=== PATIENT | female | born 1980 | race American Indian/Alaskan Native ===

== ENCOUNTER 2019-06-30 22:10 | Emergency (ER) | payer SELFPAY ==
[2019-06-30 22:20] VITALS: BP 98/62
[2019-06-30 23:49] LABS: Bilirubin,Urine NEG (Negative); Blood,Urine NEG (Negative); Color,Urine Straw (Yellow); Protein,Urine <15 mg/dL mg/dL (Negative); Urobilinogen,Urine < 2.0 mg/dL (<2.0)
[2019-07-01] MEDS ORDERED: TYLENOL PO ONE (01:01)
--- NOTE | 2019-07-01 01:01 | Emergency Department Report ---
ED Abdominal Pain HPI - General Chief Complaint: Abdominal Pain Stated Complaint: BILATERAL FLANK PAIN/ 18 WK GESTATION Time Seen by Provider: 07/01/19 00:06 Source: patient, EMS Mode of arrival: Ambulatory Limitations: No Limitations - History of Present Illness Initial Comments: 39-year-old -[place] female comes to the emergency room complaining of bilateral flank pain 4 days. Patient reports she is approximately 18 weeks with a last menstrual period of 03/16/2019 she is 13 para 75 abortions. Patient currently has no OB care as she recently moved from [place] 8 months ago. Patient does admit to vaginal discharge. Denies any fever or chills, nausea vomiting. MD Complaint: flank pain Onset/Timin -: days(s) Location: bilateral flank Radiation: none Severity scale (0 -10): 9 Quality: aching, sharp Consistency: constant Improves With: nothing Worsens With: movement Associated Symptoms: dysuria - Related Data LMP Date: 03/16/19 Previous Rx's Medication Instructions Recorded Last Taken Type Nitrofurantoin Juab/M-Cryst 100 mg PO Q12HR #14 capsule 07/01/19 Unknown Rx [Macrobid CAP] metroNIDAZOLE [Flagyl] 500 mg PO Q8HR #21 tablet 07/01/19 Unknown Rx Allergies Allergy/AdvReac Type Severity Reaction Status Date / Time codeine Allergy Shortness Verified 07/01/19 01:07 of Breath doxycycline Allergy Swelling Verified 07/01/19 01:07 tetracycline Allergy Itching Verified 06/30/19 22:16 ED Review of Systems ROS: Stated complaint: BILATERAL FLANK PAIN/ 18 WK GESTATION Other details as noted in HPI Comment: All other systems reviewed and negative Genitourinary: urgency, dysuria, frequency Musculoskeletal: back pain ED Past Medical Hx - Past Medical History Previous Medical History?: Yes Hx Renal Disease: Yes (stage 1) - Surgical History Past Surgical History?: Yes Additional Surgical History: D&C - Social History Smoking Status: Never Smoker - Medications Home Medications: Home Medications Medication Instructions Recorded Confirmed Last Taken Type Nitrofurantoin Juab/M-Cryst 100 mg PO Q12HR #14 capsule 07/01/19 Unknown Rx [Macrobid CAP] metroNIDAZOLE [Flagyl] 500 mg PO Q8HR #21 tablet 07/01/19 Unknown Rx ED Physical Exam - General Limitations: No Limitations General appearance: alert, in no apparent distress - Head Head exam: Present: atraumatic, normocephalic - Eye Eye exam: Present: normal appearance - ENT ENT exam: Present: mucous membranes moist - Neck Neck exam: Present: normal inspection - Respiratory Respiratory exam: Present: normal lung sounds bilaterally. Absent: respiratory distress - Cardiovascular Cardiovascular Exam: Present: regular rate, normal rhythm. Absent: systolic murmur, diastolic murmur, rubs, gallop - GI/Abdominal GI/Abdominal exam: Present: soft, normal bowel sounds - External exam: Present: normal external exam Speculum exam: Present: vaginal discharge Bi-manual exam: Present: cervical motion tendernes - Extremities Exam Extremities exam: Present: normal inspection - Back Exam Back exam: Present: normal inspection - Neurological Exam Neurological exam: Present: alert, oriented X3 - Psychiatric Psychiatric exam: Present: normal affect, normal mood - Skin Skin exam: Present: warm, dry, intact, normal color. Absent: rash ED Course Vital Signs 06/30/19 22:19 Temperature 98.4 F Pulse Rate 86 Respiratory 18 Rate Blood Pressure 98/62 O2 Sat by Pulse 100 Oximetry ED Medical Decision Making - Lab Data Laboratory Tests 06/30/19 06/30/19 22:20 22:55 HCG, Quant [id number] H Urine Color Straw Urine Turbidity Clear Urine pH 6.0 Ur Specific [place] 1.013 Urine Protein <15 mg/dl Urine Glucose (UA) Neg Urine Ketones Neg Urine Blood Neg Urine Nitrite Neg Urine Bilirubin Neg Urine Urobilinogen < 2.0 Ur Leukocyte Esterase Lg Urine WBC (Auto) 37.0 H Urine RBC (Auto) 3.0 U Epithel Cells (Auto) 1.0 Urine Yeast (Budding) 1+ - Radiology Data Radiology results: report reviewed Patient: EVERARDO CORTES MR#: [id number] : 1980 Acct:[id number] Age/Sex: 39 / F ADM Date: 06/30/19 Loc: ED Attending Dr: Ordering Physician: TIBURCIO TOWNSEND Date of Service: 07/01/19 Procedure(s): US OB <= 14 weeks fetus Accession Number(s): [id number] cc: TIBURCIO TOWNSEND ULTRASOUND OBSTETRIC INDICATION / CLINICAL INFORMATION: pelvic pain. TECHNIQUE: Transabdominal. COMPARISON: None available. FINDINGS: GESTATIONAL SAC: Well-defined oval shape and intrauterine in location. YOLK SAC: No significant abnormality. EMBRYO/FETUS: No significant abnormality. - [place]-Rump Length = 6.5 cm = 12 weeks, 6 day(s). - Heart Rate, beats per minute (if present) = 162 ADNEXA: No significant abnormality. FREE FLUID: None. ADDITIONAL FINDINGS: None. IMPRESSION: 1. Single, living intrauterine with estimated sonographic age of 12 weeks, 6 day(s). Signer Name: Niles Gaitan MD Signed: 07/01/2019 1:03 AM Workstation Name: [id number] Transcribed By: TL Dictated By: Niles Gaitan MD Electronically Authenticated By: Niles Gaitan MD Signed Date/Time: 07/01/19102 DD/ 1 TD/TT: - Medical Decision Making 39-year-old -[place] female comes to the emergency room complaining of bilateral flank pain 4 days. Patient reports she is approximately 18 weeks with a last menstrual period of 03/16/2019 she is 13 para 75 abortions. Patient currently has no OB care as she recently moved from [place] 8 months ago. Patient does admit to vaginal discharge. Denies any fever or chills, nausea vomiting.. Ultrasound ordered, wet prep, Chlamydia, urinalysis, hCG Wet prep shows many yeasts and greater than 20% clue cells, urinalysis shows large leukoesterase and 30s 7 WBCs. Ultrasound shows patient is 12 weeks 6 days . We will treat patient for bacterial vaginosis a urinary tract infection. Please patient on vitamins and for her to be referred to [facility]. Discussed with patient she can take Tylenol for pain Critical care attestation.: If time is entered above; I have spent that time in minutes in the direct care of this critically ill patient, excluding procedure time. ED Disposition Clinical Impression: Bacterial vaginosis in UTI (urinary tract infection) during Qualifiers: Trimester: third trimester Qualified Code(s): O23.43 - Unspecified infection of urinary tract in , third trimester Disposition: DC-01 TO HOME OR SELFCARE Is pt being admited?: No Does the pt Need Aspirin: No Condition: Stable Instructions: Abdominal Pain (ED), Bacterial Vaginosis (ED) Additional Instructions: Complete antibiotics as prescribed. You can take Tylenol as needed for pain management. Increase her water intake but then she as tolerated. Please start taking vitamins he can try vitamins as they may be better for you. Very important for you to follow up with OB provider. I have listed several below for your convenience Prescriptions: metroNIDAZOLE [Flagyl] 500 mg PO Q8HR #21 tablet Nitrofurantoin Juab/M-Cryst [Macrobid CAP] 100 mg PO Q12HR #14 capsule Referrals: PRIMARY CARE, [Primary Care Provider] - 3-5 Days [facility] [Provider Group] - 3-5 Days [facility] [Provider Group] - 3-5 Days [facility] [Provider Group] - 3-5 Days Forms: STI Treatment and Prevention
--- NOTE | 2019-07-01 01:08 | Ultrasound Report ---
ULTRASOUND OBSTETRIC INDICATION / CLINICAL INFORMATION: pelvic pain. TECHNIQUE: Transabdominal. COMPARISON: None available. FINDINGS: GESTATIONAL SAC: Well-defined oval shape and intrauterine in location. YOLK SAC: No significant abnormality. EMBRYO/FETUS: No significant abnormality. - [place]-Rump Length = 6.5 cm = 12 weeks, 6 day(s). - Heart Rate, beats per minute (if present) = 162 ADNEXA: No significant abnormality. FREE FLUID: None. ADDITIONAL FINDINGS: None. IMPRESSION: 1. Single, living intrauterine with estimated sonographic age of 12 weeks, 6 day(s). Signer Name: Niles Gaitan MD Signed: 07/01/2019 1:03 AM Workstation Name: [id number]
== END 2019-07-01 01:55 | disposition home or self-care (01) ==
LOC: ED 22:10
DX: O23.43 Unspecified infection of urinary tract in pregnancy, third trimester (principal); N76.0 Acute vaginitis
CPT/HCPCS: 36415; 76801; 81001; 84702; 87086; 87210; 87591

== ENCOUNTER 2020-03-07 13:08 | Emergency (ER) | payer OTHER ==
--- NOTE | 2020-03-07 13:45 | Emergency Department Report ---
ED Abdominal Pain HPI - General Chief Complaint: Abdominal Pain Stated Complaint: UTI PUI?: No Time Seen by Provider: 03/07/20 13:43 Source: patient Mode of arrival: Ambulatory Limitations: No Limitations - History of Present Illness Initial Comments: Ms. Hunter is a 39-year-old comes to the emergency room with severe right fl ank pain and dysuria for 3 days. She denies nausea and vomiting. She does endorse a fever. She has no cough chest pain or shortness of breath. She has not seen her primary care doctor. She has not taken any medications prior to arrival. In triage heart rate was 116 bpm and temperature was 99.5. Patient was ambulatory to [facility]. MD Complaint: abdominal pain -: Gradual, days(s) Consistency: constant Improves With: nothing Worsens With: nothing Associated Symptoms: denies other symptoms, nausea, vomiting, dysuria. denies: diarrhea, fever, chills, constipation, hematemesis, hematochezia, melena, hematuria, anorexia, syncope - Related Data Previous Rx's Medication Instructions Recorded Last Taken Type Ibuprofen [Motrin] 800 mg PO Q8HR PRN #30 tablet 03/07/20 Unknown Rx Ondansetron [Zofran Odt] 4 mg PO Q8HR PRN #10 tab.rapdis 03/07/20 Unknown Rx Sulfamethoxazole/Trimethoprim 1 each PO BID #10 tablet 03/07/20 Unknown Rx [Bactrim DS TAB] Tamsulosin [Flomax] 0.4 mg PO QDAY #10 cap 03/07/20 Unknown Rx traMADoL [Ultram] 50 mg PO Q6HR PRN #10 tablet 03/07/20 Unknown Rx Allergies Allergy/AdvReac Type Severity Reaction Status Date / Time codeine Allergy Shortness Verified 01/11/20 17:12 of Breath doxycycline Allergy Swelling Verified 01/11/20 17:12 ketorolac [From Toradol] Allergy Rash Verified 01/11/20 17:12 metoclopramide [From Reglan] Allergy Rash Verified 01/11/20 17:12 tetracycline Allergy Itching Verified 01/11/20 17:12 ED Review of Systems ROS: Stated complaint: UTI Other details as noted in HPI Comment: All other systems reviewed and negative ED Past Medical Hx - Past Medical History Previous Medical History?: Yes Hx Hypertension: No Hx Congestive Heart Failure: No Hx Diabetes: No Hx Deep Vein Thrombosis: No Hx Renal Disease: No Hx Sickle Cell Disease: No Hx Seizures: No Hx Asthma: Yes Hx COPD: No - Surgical History Past Surgical History?: Yes Additional Surgical History: D&C - Social History Smoking Status: Current Every Day Smoker Substance Use Type: None - Medications Home Medications: Home Medications Medication Instructions Recorded Confirmed Last Taken Type Ibuprofen [Motrin] 800 mg PO Q8HR PRN #30 tablet 03/07/20 Unknown Rx Ondansetron [Zofran Odt] 4 mg PO Q8HR PRN #10 tab.rapdis 03/07/20 Unknown Rx Sulfamethoxazole/Trimethoprim 1 each PO BID #10 tablet 03/07/20 Unknown Rx [Bactrim DS TAB] Tamsulosin [Flomax] 0.4 mg PO QDAY #10 cap 03/07/20 Unknown Rx traMADoL [Ultram] 50 mg PO Q6HR PRN #10 tablet 03/07/20 Unknown Rx ED Physical Exam - General Limitations: No Limitations General appearance: alert, in no apparent distress - Head Head exam: Present: atraumatic, normocephalic - Eye Eye exam: Present: normal appearance - ENT ENT exam: Present: mucous membranes moist - Neck Neck exam: Present: normal inspection - Respiratory Respiratory exam: Present: normal lung sounds bilaterally. Absent: respiratory distress - Cardiovascular Cardiovascular Exam: Present: regular rate, normal rhythm. Absent: systolic murmur, diastolic murmur, rubs, gallop - GI/Abdominal GI/Abdominal exam: Present: soft, normal bowel sounds - Extremities Exam Extremities exam: Present: normal inspection - Back Exam Back exam: Present: normal inspection - Neurological Exam Neurological exam: Present: alert, oriented X3 - Psychiatric Psychiatric exam: Present: normal affect, normal mood - Skin Skin exam: Present: warm, dry, intact, normal color. Absent: rash ED Course Vital Signs 03/07/20 03/07/20 13:14 15:00 Temperature 99.5 F Pulse Rate 116 H Respiratory 18 16 Rate Blood Pressure 107/66 O2 Sat by Pulse 99 Oximetry ED Medical Decision Making - Lab Data Result diagrams: 03/07/20 13:34 03/07/20 13:34 - Radiology Data Radiology results: report reviewed, image reviewed - Medical Decision Making Lab Results 03/07/20 03/07/20 Range/Units 13:32 13:34 Sodium 131 L (137-145) mmol/L Potassium 4.2 (3.6-5.0) mmol/L Chloride 96.8 L (98-107) mmol/L Carbon Dioxide 17 L (22-30) mmol/L Anion Gap 21 mmol/L BUN 5 L (7-17) mg/dL Creatinine 0.7 (0.7-1.2) mg/dL Estimated GFR > 60 ml/min BUN/Creatinine Ratio 7 % Glucose 94 (65-100) mg/dL Calcium 9.2 (8.4-10.2) mg/dL Urine Color Yellow (Yellow) Urine Turbidity Cloudy (Clear) Urine pH 6.0 (5.0-7.0) Ur Specific [place] 1.011 (1.003-1.030) Urine Protein 30 mg/dl (Negative) mg/dL Urine Glucose (UA) Neg (Negative) mg/dL Urine Ketones Neg (Negative) mg/dL Urine Blood Sm (Negative) Urine Nitrite Neg (Negative) Urine Bilirubin Neg (Negative) Urine Urobilinogen 2.0 (<2.0) mg/dL Ur Leukocyte Esterase Lg (Negative) Urine WBC (Auto) > 182.0 H (0.0-6.0) /HPF Urine RBC (Auto) 23.0 (0.0-6.0) /HPF U Epithel Cells (Auto) 6.0 (0-13.0) /HPF Urine HCG, Qual Negative (Negative) Vital Signs 03/07/20 13:14 Temperature 99.5 F Pulse Rate 116 H Respiratory 18 Rate Blood Pressure 107/66 O2 Sat by Pulse 99 Oximetry labs noted ua noted ct noted Patient medicated with normal saline, pain medication and Zofran. Patient given Rocephin. Patient has been educated that she has a kidney stone and will need to see urology. Patient has a 2 mm stone which she should be able to pass. She has mild hydro-. WBC is 14. Patient will be discharged home on antibiotics, Flomax and Zofran. She verbalizes understanding that she needs to see urology as soon as possible. On discharge patient is ambulatory nontoxic taking p.o. and in no acute distress - Differential Diagnosis uti/ro preg/k stone Critical care attestation.: If time is entered above; I have spent that time in minutes in the direct care of this critically ill patient, excluding procedure time. ED Disposition Clinical Impression: UTI (urinary tract infection), Kidney stone Disposition: DC-01 TO HOME OR SELFCARE Is pt being admited?: No Does the pt Need Aspirin: No Condition: Stable Instructions: Kidney Stones (ED) Additional Instructions: stay well hydrated with water motrin or tylenol for mild pain ultram for severe pain meds as ordered today follow up with URO MD denita referral below follow up with pcp referral below Prescriptions: Sulfamethoxazole/Trimethoprim [Bactrim DS TAB] 1 each PO BID #10 tablet Tamsulosin [Flomax] 0.4 mg PO QDAY #10 cap Ibuprofen [Motrin] 800 mg PO Q8HR PRN #30 tablet PRN Reason: Pain, Moderate (4-6) traMADoL [Ultram] 50 mg PO Q6HR PRN #10 tablet PRN Reason: Pain Ondansetron [Zofran Odt] 4 mg PO Q8HR PRN #10 tab.rapdis PRN Reason: Vomiting Referrals: NELLIE RUSSO MD [Staff Physician] - 3-5 Days TRACIE SHOEMAKER MD [Staff Physician] - 3-5 Days Time of Disposition: 14:54
[2020-03-07 14:22] LABS: Bilirubin,Urine NEG (Negative); Blood,Urine SM (Negative); Color,Urine Yellow (Yellow)
[2020-03-07 14:25] LABS: WBC,Urine > 182.0 /HPF (0.0-6.0)
[2020-03-07] MEDS ORDERED: SODIUM CHLORIDE 0.9% 1000 ML 1,000 ML IV ONE ×2 (14:25→15:20)
[2020-03-07] MEDS ORDERED: cefTRIAXone/NS 1 GM/50 ML 1 GM/50 ML BAG IV ONE (14:25)
[2020-03-07 14:26] LABS: HCG Qualitative,Urine Negative (Negative)
[2020-03-07] MEDS ORDERED: HYDROcodone/ACETAMINOPHEN 5-325 MG TAB PO ONE (14:41)
[2020-03-07 14:48] LABS: BUN/Creatinine Ratio 7; Blood Urea Nitrogen 5 mg/dL (7-17); Calcium 9.2 mg/dL (8.4-10.2); Hemolysis Index 67
[2020-03-07 14:49] LABS: Hematocrit 32.8 % (30.3-42.9); Hemoglobin 10.4 gm/dl (10.1-14.3); Mean Corpuscular HGB Conc 32 % (30-34); Mean Corpuscular Volume 79 fl (79-97); Platelet Count 176 K/mm3 (140-440); Red Blood Count 4.13 M/mm3 (3.65-5.03)
[2020-03-07 14:54] LABS: Red Cell Distribution Width 20.8 % (13.2-15.2)
--- NOTE | 2020-03-07 15:14 | Cat Scan Report ---
CT ABDOMEN AND PELVIS WITHOUT CONTRAST HISTORY: Abdominal pain and weakness COMPARISON: None TECHNIQUE: Routine abdominal and pelvic CT exam performed without contrast. Lack of intravenous cont rast limits evaluation of the vascular and solid organs.. All CT scans at this location are performed using CT dose reduction for ALARA by means of automated exposure control. FINDINGS: CT ABDOMEN: Lung Bases: No significant abnormality. Liver: No significant abnormality. Biliary: No significant abnormality. Spleen: No significant abnormality. Unenlarged. Pancreas: No significant abnormality. Adrenals: No significant abnormality. Kidneys: There is mild right hydronephrosis due to a 2 mm stone in the mid right ureter at the level of the pelvic brim. Lymphatics: No lymphadenopathy. Vasculature: No significant abnormality. Bowel/Peritoneum: No significant abnormality. No free air. No free fluid. Normal appendix. CT PELVIC: : No significant abnormality. Lymphatics: No lymphadenopathy. Osseous Structures: No aggressive appearing osseous lesions. Additional Findings: None IMPRESSION: 1. Mild right hydronephrosis due to a 2 mm stone in the mid right ureter at the level of the pelvic b rim. Signer Name: Anshu Leal MD Signed: 03/07/2020 3:10 PM Workstation Name: [id number]
[2020-03-07] MEDS ORDERED: ONDANSETRON 4 MG/2 ML INJ IV ONE (15:16)
[2020-03-07 15:46] LABS: Anisocytosis 1+; Basophils % (Manual) 0 % (0.0-1.8); Burr Cells 1+; Hypochromasia 1+; Ovalocytes 1+; Total Cells Counted 100
[2020-03-07] MEDS ORDERED: HYDROmorphone 2 MG/1 ML INJ IV ONE (16:12)
[2020-03-07 19:42] VITALS: BP 114/59
== END 2020-03-07 19:41 | disposition home or self-care (01) ==
LOC: ED 13:08
DX: N39.0 Urinary tract infection, site not specified (principal); N20.0 Calculus of kidney; F17.200 Nicotine dependence, unspecified, uncomplicated; J45.909 Unspecified asthma, uncomplicated; Z98.890 Other specified postprocedural states; Z88.6 Allergy status to analgesic agent; Z88.8 Allergy status to other drugs, medicaments and biological substances; Z79.899 Other long term (current) drug therapy
CPT/HCPCS: 36415; 74176; 80048; 81001; 81025; 85025; 96365; 96375; 99284; J0696; J1170; J2405; J7030; 85007

== ENCOUNTER 2021-07-02 15:55 | Emergency (ER) | payer OTHER ==
[2021-07-02 18:41] VITALS: BP 104/69
--- NOTE | 2021-07-02 19:43 | Emergency Department Report ---
ED ENT HPI - General Chief complaint: Dental/Oral Stated complaint: (R)FACE SWELLING/HEADACHE/EAR ACHE Time Seen by Provider: 07/02/21 19:16 Source: patient Mode of arrival: Ambulatory - History of Present Illness Initial comments: 41 year old female presents to ED with complaints of right lower jaw pain, dental pain and swelling. Onset was 3 days ago. She states that she had several years ago, but she thinks he did not do it correctly. Patient states that she does have a dentist, she called today to try to get an appointment, and she was told that they will call her back. She reports no fever, chills, difficulty swallowing, trismus or any additional symptoms at this time MD complaint: tooth pain, other (right facial swelling) -: Gradual, days(s) (3) Location: other (right lower jaw and right lower pre molar ) Severity: severe Severity scale (0 -10): 10 Quality: constant Consistency: constant Improves with: none Worsens with: eating, movement Associated Symptoms: gum swelling, toothache. denies: cough, pain with swallowing, sore throat, tinnitus, hearing loss, discharge from ear, rhinorrhea - Related Data Previous Rx's Medication Instructions Recorded Last Taken Type Ibuprofen [Motrin] 800 mg PO Q8HR PRN #30 tablet 03/07/20 Unknown Rx Ondansetron [Zofran Odt] 4 mg PO Q8HR PRN #10 tab.rapdis 03/07/20 Unknown Rx Sulfamethoxazole/Trimethoprim 1 each PO BID #10 tablet 03/07/20 Unknown Rx [Bactrim DS TAB] Tamsulosin [Flomax] 0.4 mg PO QDAY #10 cap 03/07/20 Unknown Rx traMADoL [Ultram] 50 mg PO Q6HR PRN #10 tablet 03/07/20 Unknown Rx Clindamycin [Clindamycin CAP] 300 mg PO Q6H #40 capsule 07/02/21 Unknown Rx HYDROcodone/APAP 5-325 [[place] 1 each PO Q4HR PRN #12 tablet 07/02/21 Unknown Rx 5/325] Allergies Allergy/AdvReac Type Severity Reaction Status Date / Time codeine Allergy Shortness Verified 01/11/20 17:12 of Breath doxycycline Allergy Swelling Verified 01/11/20 17:12 ketorolac [From Toradol] Allergy Rash Verified 01/11/20 17:12 metoclopramide [From Reglan] Allergy Rash Verified 01/11/20 17:12 tetracycline Allergy Itching Verified 01/11/20 17:12 ED Dental HPI - General Chief complaint: Dental/Oral Stated complaint: (R)FACE SWELLING/HEADACHE/EAR ACHE Time Seen by Provider: 07/02/21 19:16 Source: patient Mode of arrival: Ambulatory Limitations: No Limitations - Related Data Previous Rx's Medication Instructions Recorded Last Taken Type Ibuprofen [Motrin] 800 mg PO Q8HR PRN #30 tablet 03/07/20 Unknown Rx Ondansetron [Zofran Odt] 4 mg PO Q8HR PRN #10 tab.rapdis 03/07/20 Unknown Rx Sulfamethoxazole/Trimethoprim 1 each PO BID #10 tablet 03/07/20 Unknown Rx [Bactrim DS TAB] Tamsulosin [Flomax] 0.4 mg PO QDAY #10 cap 03/07/20 Unknown Rx traMADoL [Ultram] 50 mg PO Q6HR PRN #10 tablet 03/07/20 Unknown Rx Clindamycin [Clindamycin CAP] 300 mg PO Q6H #40 capsule 07/02/21 Unknown Rx HYDROcodone/APAP 5-325 [[place] 1 each PO Q4HR PRN #12 tablet 07/02/21 Unknown Rx 5/325] Allergies Allergy/AdvReac Type Severity Reaction Status Date / Time codeine Allergy Shortness Verified 01/11/20 17:12 of Breath doxycycline Allergy Swelling Verified 01/11/20 17:12 ketorolac [From Toradol] Allergy Rash Verified 01/11/20 17:12 metoclopramide [From Reglan] Allergy Rash Verified 01/11/20 17:12 tetracycline Allergy Itching Verified 01/11/20 17:12 ED Review of Systems ROS: Stated complaint: (R)FACE SWELLING/HEADACHE/EAR ACHE Other details as noted in HPI Comment: All other systems reviewed and negative Constitutional: denies: chills, fever Eyes: denies: eye pain, eye discharge, vision change ENT: dental pain. denies: ear pain, throat pain, hearing loss, epistaxis Respiratory: denies: cough, orthopnea, shortness of breath, SOB with exertion, SOB at rest, stridor, wheezing Cardiovascular: denies: chest pain, palpitations, dyspnea on exertion, edema, syncope, paroxysmal nocturnal dyspnea Gastrointestinal: denies: abdominal pain, nausea, diarrhea, constipation, hematemesis, melena, hematochezia Genitourinary: denies: urgency, dysuria, discharge, abnormal menses, dyspareunia Musculoskeletal: denies: back pain, joint swelling, arthralgia, myalgia Skin: denies: rash, lesions, change in color, change in hair/nails, pruritus Neurological: denies: headache, weakness, paresthesias, abnormal gait, vertigo Psychiatric: denies: anxiety, depression, auditory hallucinations, visual hallucinations, homicidal thoughts, suicidal thoughts Hematological/Lymphatic: denies: easy bleeding, easy bruising, swollen glands ED Past Medical Hx - Past Medical History Previous Medical History?: Yes Hx Hypertension: No Hx Congestive Heart Failure: No Hx Diabetes: No Hx Deep Vein Thrombosis: No Hx Renal Disease: No Hx Sickle Cell Disease: No Hx Seizures: No Hx Asthma: Yes Hx COPD: No - Surgical History Past Surgical History?: Yes Additional Surgical History: D&C - Social History Smoking Status: Current Every Day Smoker Substance Use Type: None - Medications Home Medications: Home Medications Medication Instructions Recorded Confirmed Last Taken Type Ibuprofen [Motrin] 800 mg PO Q8HR PRN #30 tablet 03/07/20 Unknown Rx Ondansetron [Zofran Odt] 4 mg PO Q8HR PRN #10 tab.rapdis 03/07/20 Unknown Rx Sulfamethoxazole/Trimethoprim 1 each PO BID #10 tablet 03/07/20 Unknown Rx [Bactrim DS TAB] Tamsulosin [Flomax] 0.4 mg PO QDAY #10 cap 03/07/20 Unknown Rx traMADoL [Ultram] 50 mg PO Q6HR PRN #10 tablet 03/07/20 Unknown Rx Clindamycin [Clindamycin CAP] 300 mg PO Q6H #40 capsule 07/02/21 Unknown Rx HYDROcodone/APAP 5-325 [[place] 1 each PO Q4HR PRN #12 tablet 07/02/21 Unknown Rx 5/325] ED Physical Exam - General Limitations: No Limitations General appearance: alert, in no apparent distress - Head Head exam: Present: atraumatic, normocephalic, normal inspection - Eye Eye exam: Present: normal appearance, PERRL, EOMI Pupils: Present: normal accommodation - ENT ENT exam: Present: normal exam, mucous membranes moist - Expanded ENT Exam Expanded Mouth exam: Present: normal external inspection. Absent: drooling, trismus, muffled voice, tongue normal, laceration 1 - Dental Tenderness (severe with associate gum swelling and possible abscess), Other (Root of tooth still in place with associated gum swelling) Throat exam: Positive: normal inspection - Neck Neck exam: Present: normal inspection, full ROM, lymphadenopathy (anterior cervical ). Absent: meningismus - Respiratory Respiratory exam: Present: normal lung sounds bilaterally. Absent: respiratory distress, wheezes, rales, rhonchi - Cardiovascular Cardiovascular Exam: Present: regular rate, normal rhythm, normal heart sounds - Neurological Exam Neurological exam: Present: alert, oriented X3, CN II-XII intact, normal gait - Psychiatric Psychiatric exam: Present: normal affect, normal mood - Skin Skin exam: Present: intact ED Course Vital Signs 07/02/21 18:39 Temperature 98.3 F Pulse Rate 80 Respiratory 18 Rate Blood Pressure 104/69 O2 Sat by Pulse 95 Oximetry ED Medical Decision Making - Medical Decision Making 1944: The patient is well-appearing and in no acute distress. There is no respiratory distress, no stridor and the mental status is normal. The neurological exam is normal, and there is no significant signs of dehydration,. The history, exam, and the patient current condition does not suggest an infectious process such as meningitis, retropharyngeal abscess, peritonsillar abscess, Jason's angina, severe facial cellulitis, sepsis or any significant pathology warranting further testing, continued ED treatment, admission, consultation or any other evaluation at this time. Her vital signs have been stable. The patient condition is stable and appropriate for discharge. Critical care attestation.: If time is entered above; I have spent that time in minutes in the direct care of this critically ill patient, excluding procedure time. ED Disposition Clinical Impression: Dental abscess Disposition: HOME / SELF CARE / HOMELESS Is pt being admited?: No Does the pt Need Aspirin: No Condition: Stable Instructions: Dental Abscess, [id number] Additional Instructions: Take the clindamycin and the norco as prescribed. I recommend warm compresses 2- 3 times per day. I recommend that you call your dentist tomorrow for an appointment. Return to ED if worse,. Prescriptions: Clindamycin [Clindamycin CAP] 300 mg PO Q6H #40 capsule HYDROcodone/APAP 5-325 [[place] 5/325] 1 each PO Q4HR PRN #12 tablet PRN Reason: Pain Referrals: PRIMARY CARE,MD [Primary Care Provider] - 3-5 Days Time of Disposition: 19:45
== END 2021-07-02 19:57 | disposition home or self-care (01) ==
LOC: ED 15:55
DX: K04.7 Periapical abscess without sinus (principal); J45.909 Unspecified asthma, uncomplicated; Z98.890 Other specified postprocedural states; F17.200 Nicotine dependence, unspecified, uncomplicated; Z88.1 Allergy status to other antibiotic agents; Z88.5 Allergy status to narcotic agent; Z88.8 Allergy status to other drugs, medicaments and biological substances
CPT/HCPCS: 99281